=== PATIENT | female | born 1955 | race Caucasian/White ===

== ENCOUNTER 2019-10-11 12:29 | Inpatient (IN) | payer OTHER ==
[2019-10-11 13:10] VITALS: BMI 31.4
--- NOTE | 2019-10-11 16:50 | HP ---
CIWA Score Nausea/Vomitin Muscle Tremors: 2 Anxiety: 3 Agitation: 2 Paroxysmal Sweats: 3 Orientation: 0-Oriented Tacttile Disturbances: 1-Very Mild Itch/Numbness Auditory Disturbances: 0-None Visual Disturbances: 0-None Headache: 2-Mild CIWA-Ar Total Score: 15 - Admission Criteria OASAS Guidelines: Admission for Medically Managed Detox: Requires at least one of the followin. CIWA greater than 12 2. Seizures within the past 24 hours 3. Delirium tremens within the past 24 hours 4. Hallucinations within the past 24 hours 5. Acute intervention needed for co occurring medical disorder 6. Acute intervention needed for co occurring psychiatric disorder 7. Severe withdrawal that cannot be handled at a lower level of care (continued vomiting, continued diarrhea, abnormal vital signs) requiring intravenous medication and/or fluids 8. Admitting History and Physical - Admission Chief Complaint: "I'm here for alcohol detox". History of Present Illness: A 64year old female with history of HTN, hypothyroidism, dyslipidemia, depression, and alcohol use disorder who presents here today requesting for alcohol detox. Pt states she goes to [facility] outpatient CD program daily and gets a shot monthly but unable to recall the name of the shot she gets. Pt reports that she has been sober but lost her best friend recently and started drinking again. . Pt states, she uses Alcohol daily and last use today. Pt denies any depression or suicidal ideation at the moment. History Source: Patient Limitations to Obtaining History: No Limitations - Past Medical History Cardiovascular: Yes: HTN, Hyperlipdemia Endocrine: Yes: Hypothyroidism (on medication.) - Smoking History Smoking history: Unknown if ever smoked Have you smoked in the past 12 months: No - Alcohol/Substance Use Hx Alcohol Use: Yes History of Substance Use: reports: None - Social History Usual Living Arrangement: Yes: Alone, Other (senior care) Do you think of yourself as: Straight/Heterosexual ADL: Independent History of Recent Travel: No Admission [facility] [place] Allergies/Adverse Reactions: Allergies Allergy/AdvReac Type Severity Reaction Status Date / Time No Known Allergies Allergy Verified 10/11/19 13:10 Exam Limitations: No Limitations - Ebola screening Have you traveled outside of the country in the last 21 days: No Have you had contact with anyone from an Ebola affected area: No Have you been sick,other than usual withdrawal symptoms: No Do you have a fever: No - Review of Systems Constitutional: Chills, Loss of Appetite, Night Sweats EENT: reports: Blurred Vision, Other (Right eye sx Sep, 2019.) Respiratory: reports: No Symptoms reported Cardiac: reports: No Symptoms Reported GI: reports: Nausea, Poor Appetite : reports: No Symptoms Reported Musculoskeletal: reports: No Symptoms Reported Integumentary: reports: No Symptoms Reported Neuro: reports: Headache, Numbness, Tremors Endocrine: reports: No Symptoms Reported Hematology: reports: No Symptoms Reported Psychiatric: reports: Judgement Intact, Mood/Affect Appropiate, Anxious Other Systems: Reviewed and Negative Patient History - Patient Medical History Hx Anemia: No Hx Asthma: No Hx Chronic Obstructive Pulmonary Disease (COPD): No Hx Cancer: No Hx Cardiac Disorders: No Hx Congestive Heart Failure: No Hx Hypertension: Yes Hx Hypercholesterolemia: Yes Hx Pacemaker: No HX Cerebrovascular Accident: No Hx Seizures: No Hx Dementia: No Hx Diabetes: No Hx Gastrointestinal Disorders: No Hx Liver Disease: No Hx Genitourinary Disorders: No Hx Sexually Transmitted Disorders: No Hx Renal Disease (ESRD): No Hx Thyroid Disease: No Hx Human Immunodeficiency Virus (HIV): No Hx Hepatitis C: No Hx Depression: No Hx Suicide Attempt: No Hx Bipolar Disorder: No Hx Schizophrenia: No - Patient Surgical History Past Surgical History: No - PPD History Previous Implant?: Yes Documented Results: Positive w/o proof Implanted On Prior [facility] Admission?: No PPD to be Administered?: No - Smoking Cessation Smoking history: Never smoked Have you smoked in the past 12 months: No Hx Chewing Tobacco Use: No Initiated information on smoking cessation: No - Substance & Tx. History Hx Substance Use Treatment: Yes (attends [facility] outpatient program daily.) - Substances abused Alcohol Substance route: Oral Frequency: Daily Amount used: barcardi - 2pts Age of first use: 55 Date of last use: 10/11/19 Admission Physical Exam [facility] - Vital Signs Vital Signs: Vital Signs - 24 hr 10/11/19 10/11/19 13:02 16:25 Temperature 96.1 F L 96.1 F L Pulse Rate 90 90 Respiratory 18 18 Rate Blood Pressure 172/119 H 172/119 H - Physical General Appearance: Yes: No Apparent Distress, Tremorous, Irritable, Sweating, Anxious HEENTM: Yes: EOMI, Hearing grossly Normal, Normocephalic, Normal Voice, OCHOA, Pharynx Normal, Tm's normal Respiratory: Yes: Chest Non-Tender, Lungs Clear, Normal Breath Sounds, No Respiratory Distress Neck: Yes: No masses,lesions,Nodules, Supple, Trachea in good position Breast: Yes: Breast Exam Deferred Cardiology: Yes: Regular Rhythm, Regular Rate, S1, S2 Abdominal: Yes: Normal Bowel Sounds, Non Tender, Soft Genitourinary: Yes: Within Normal Limits Back: Yes: Normal Inspection Musculoskeletal: Yes: full range of Motion, Gait Steady Extremities: Yes: Normal Capillary Refill, Normal Range of Motion, Non-Tender, Tremors Neurological: Yes: Fully Oriented, Alert, Motor Strength 5/5, Normal Mood/Affect , Normal Response Integumentary: Yes: Dry, Warm Lymphatic: Yes: Within Normal Limits - Diagnostic (1) Alcohol dependence with withdrawal, uncomplicated Current Visit: Yes Status: Acute (2) HTN (hypertension) Current Visit: Yes Status: Chronic (3) Dyslipidemia Current Visit: Yes Status: Chronic (4) Hypothyroidism Current Visit: Yes Status: Acute Cleared for Admission [facility] - Detox or Rehab [facility] Level of Care: Medically Managed Detox Regimen/Protocol: Ativan, Librium Claeared for Rehab Admission: No Breathalyzer - Breathalyzer Breathalyzer: 0.196 Urine Drug Screen - Test Device Lot number: [id number] Expiration date: 04/20/21 - Control Is test valid?: Yes - Results Drug screen NEGATIVE: Yes Inpatient Rehab Admission - Rehab Decision to Admit Inpatient rehab admission?: No
[2019-10-11] MEDS ORDERED: hydrOXYzine PAMOATE 25 MG CAPSULE (FP) PO PRN (17:12)
[2019-10-11] MEDS ORDERED: ONDANSETRON *ODT* 4 MG TABLET SL PRN (17:12)
[2019-10-11] MEDS ORDERED: ACETAMINOPHEN 325 MG TABLET (FP) PO PRN ×2 (17:12)
[2019-10-11] MEDS ORDERED: MAGNESIUM CITRATE 300 ML BOTTLE PO PRN (17:12)
[2019-10-11] MEDS ORDERED: BISMUTH SUBSALICYLATE 524 MG/30 ML UD PO PRN (17:12)
[2019-10-11] MEDS ORDERED: MAGNESIUM HYDROX 2400MG/30ML ORAL SUSPENSION 30 ML CUP PO PRN (17:12)
[2019-10-11] MEDS ORDERED: IBUPROFEN 400 MG TABLET (FP) PO PRN (17:12)
[2019-10-11] MEDS ORDERED: MENTHOL/PHENOL 1 EACH UD MM PRN (17:12)
[2019-10-11] MEDS ORDERED: MELATONIN 5 MG TABLETS PO PRN (17:12)
[2019-10-11] MEDS ORDERED: LORazepam 2 MG TABLET PO ONE (17:13)
[2019-10-11] MEDS ORDERED: LORazepam 1 MG TABLET PO PRN (17:13)
[2019-10-11] MEDS ORDERED: cloNIDine HCL 0.1 MG TABLET PO ONE (17:22)
[2019-10-11] MEDS ORDERED: LORazepam 2 MG TABLET PO SCH (18:30)
[2019-10-11] MEDS: ATORVASTATIN CA 20 MG TABLET (FP) PO SCH (22:25)
[2019-10-11] MEDS: LORazepam 1 MG TABLET PO SCH (22:25)
[2019-10-11] MEDS: THIAMINE HCL 100 MG TABLET (FP) PO SCH (22:25)
[2019-10-12] MEDS: LORazepam 1 MG TABLET PO SCH ×4 (06:10→22:00)
[2019-10-12] MEDS: LEVOTHYROXINE NA 25 MCG TABLET (FP) PO SCH (06:10)
[2019-10-12] MEDS: PRENATAL VITAMINS W/ FOLIC ACID TABLET (FP) PO SCH (10:24)
[2019-10-12] MEDS: PANTOPRAZOLE 40 MG TABLET PO SCH (10:24)
[2019-10-12] MEDS: ENALAPRIL MALEATE 10 MG TABLET (FP) PO SCH (10:24)
[2019-10-12 12:15] LABS: HEMATOCRIT 37.2 % (32.4-45.2); HEMOGLOBIN 12.2 GM/dL (10.7-15.3); MEAN CELL VOLUME 84.9 fl (80-96); MEAN PLT VOLUME 8.3 fl (7.5-11.1); PLATELET COUNT 177 K/MM3 (134-434); RBC 4.37 M/mm3 (3.60-5.2); RDW 15.1 % (11.6-15.6); WHITE BLOOD COUNT 4.3 K/mm3 (4.0-10.0)
--- NOTE | 2019-10-12 12:16 | PN ---
S CIWA - CIWA Score Nausea/Vomitin Muscle Tremors: 2 Anxiety: 1-Mildly Anxious Agitation: 1-Slight > Activity Paroxysmal Sweats: 3 Orientation: 0-Oriented Tacttile Disturbances: 1-Very Mild Itch/Numbness Auditory Disturbances: 0-None Visual Disturbances: 0-None Headache: 0-None Present CIWA-Ar Total Score: 11 S Progress Note (SOAP) Subjective: interrupted sleep, sweats, shakes Objective: 10/12/19 12:14 Vital Signs Temperature 98.6 F 10/12/19 10:00 Pulse Rate 83 10/12/19 10:00 Respiratory Rate 16 10/12/19 10:00 Blood Pressure 139/77 10/12/19 10:00 O2 Sat by Pulse Oximetry (%) pending labs 10/12/19 12:14 pt aox3 in nad ambulating well Assessment: 10/12/19 12:14 withdrawal sx's Plan: cont. detox incerease fluids prn librim if neeeded
[2019-10-12 12:56] LABS: ALBUMIN 3.2 g/dl (3.4-5.0); BILIRUBIN,TOTAL 0.5 mg/dL (0.2-1); BLOOD UREA NITROGEN 6.7 mg/dL (7-18); CALCIUM 8.5 mg/dL (8.5-10.1); CREATININE 0.5 mg/dL (0.55-1.3); POTASSIUM 3.6 mmol/L (3.5-5.1); TOT PROT 6.4 g/dl (6.4-8.2)
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
[2019-10-12] MEDS: METHOCARBAMOL 500 MG TABLET PO PRN (17:14)
[2019-10-12] MEDS: THIAMINE HCL 100 MG TABLET (FP) PO SCH (21:59)
[2019-10-12] MEDS: ATORVASTATIN CA 20 MG TABLET (FP) PO SCH (21:59)
[2019-10-12] MEDS: MELATONIN 5 MG TABLETS PO PRN (22:00)
[2019-10-13] MEDS: MAG HYDROX/AL HYDROX/SIMETH 30 ML UNIT-DOSE CUP PO PRN ×2 (06:27→17:17)
[2019-10-13] MEDS: LORazepam 1 MG TABLET PO SCH ×4 (06:29→22:07)
[2019-10-13] MEDS: LEVOTHYROXINE NA 25 MCG TABLET (FP) PO SCH (07:54)
[2019-10-13] MEDS: ENALAPRIL MALEATE 10 MG TABLET (FP) PO SCH (10:36)
[2019-10-13] MEDS: PRENATAL VITAMINS W/ FOLIC ACID TABLET (FP) PO SCH (10:36)
[2019-10-13] MEDS: PANTOPRAZOLE 40 MG TABLET PO SCH (10:36)
--- NOTE | 2019-10-13 12:47 | PN ---
S CIWA - CIWA Score Nausea/Vomitin-No Nausea/No Vomiting Muscle Tremors: 3 Anxiety: 2 Agitation: 3 Paroxysmal Sweats: 2 Orientation: 0-Oriented Tacttile Disturbances: 0-None Auditory Disturbances: 0-None Visual Disturbances: 0-None Headache: 0-None Present CIWA-Ar Total Score: 10 S Progress Note (SOAP) Subjective: sweats shakes body aches knee pain Objective: 10/13/19 12:46 Vital Signs Temperature 98.1 F 10/13/19 12:23 Pulse Rate 83 10/13/19 12:23 Respiratory Rate 18 10/13/19 12:23 Blood Pressure 133/80 10/13/19 12:23 O2 Sat by Pulse Oximetry (%) Laboratory Tests 10/12/19 10/12/19 10/12/19 08:00 08:00 08:00 WBC 4.3 RBC 4.37 Hgb 12.2 Hct 37.2 MCV 84.9 MCH 28.0 MCHC 33.0 RDW 15.1 Plt Count 177 MPV 8.3 Sodium 141 Potassium 3.6 Chloride 102 Carbon Dioxide 32 Anion Gap 7 L BUN 6.7 L Creatinine 0.5 L Est GFR (CKD-EPI)AfAm 118.54 Est GFR (CKD-EPI)NonAf 102.28 Random Glucose 99 Calcium 8.5 Total Bilirubin 0.5 AST 18 ALT 19 Alkaline Phosphatase 129 H Total Protein 6.4 Albumin 3.2 L RPR Titer Nonreactive labs noted aaox3 ambulating no acute distress Assessment: 10/13/19 12:47 withdrawals Plan: continue detox increase fluids motrin/tylenol prn analgesic balm
[2019-10-13] MEDS: METHYL SALICYLATE/MENTHOL OINT 30 GM TUBE TP SCH ×2 (15:21→23:37)
[2019-10-13] MEDS: MELATONIN 5 MG TABLETS PO PRN (22:07)
[2019-10-13] MEDS: THIAMINE HCL 100 MG TABLET (FP) PO SCH (22:07)
[2019-10-13] MEDS: ATORVASTATIN CA 20 MG TABLET (FP) PO SCH (22:07)
[2019-10-13] MEDS: METHOCARBAMOL 500 MG TABLET PO PRN (22:07)
[2019-10-14] MEDS ORDERED: LORazepam 0.5 MG TABLET PO PRN
[2019-10-14] MEDS ORDERED: LORazepam 0.5 MG TABLET PO SCH (05:00)
[2019-10-14] MEDS: MAG HYDROX/AL HYDROX/SIMETH 30 ML UNIT-DOSE CUP PO PRN (05:49)
[2019-10-14] MEDS: LEVOTHYROXINE NA 25 MCG TABLET (FP) PO SCH (06:53)
[2019-10-14 06:59] VITALS: BP 135/97; PULSE 76; TEMP 98.2
--- NOTE | 2019-10-14 09:34 | DS ---
[facility] Detox Discharge Summary Admission Date: 10/11/19 Discharge Date: 10/14/19 - History Present History: Alcohol Dependence - Physical Exam Results Vital Signs: Vital Signs Temperature 98.2 F 10/14/19 06:58 Pulse Rate 76 10/14/19 06:58 Respiratory Rate 16 10/14/19 06:58 Blood Pressure 135/97 10/14/19 06:58 O2 Sat by Pulse Oximetry (%) Pertinent Admission Physical Exam Findings: Vital Signs Temperature 98.2 F 10/14/19 06:58 Pulse Rate 76 10/14/19 06:58 Respiratory Rate 16 10/14/19 06:58 Blood Pressure 135/97 10/14/19 06:58 O2 Sat by Pulse Oximetry (%) Laboratory Tests 10/12/19 10/12/19 10/12/19 08:00 08:00 08:00 WBC 4.3 RBC 4.37 Hgb 12.2 Hct 37.2 MCV 84.9 MCH 28.0 MCHC 33.0 RDW 15.1 Plt Count 177 MPV 8.3 Sodium 141 Potassium 3.6 Chloride 102 Carbon Dioxide 32 Anion Gap 7 L BUN 6.7 L Creatinine 0.5 L Est GFR (CKD-EPI)AfAm 118.54 Est GFR (CKD-EPI)NonAf 102.28 Random Glucose 99 Calcium 8.5 Total Bilirubin 0.5 AST 18 ALT 19 Alkaline Phosphatase 129 H Total Protein 6.4 Albumin 3.2 L RPR Titer Nonreactive aaox3 ambulating no acute distress - Treatment Hospital Course: Detox Protocol Followed, Detoxed Safely, Responded well, Discharged Condition Good, Rehab Referral Accepted Patient has Accepted a Rehab Referral to: pt declined rehab; referral provided - Medication Discharge Medications: Ambulatory Orders Acetaminophen 500 mg PO Q6H PRN 10/11/19 Cholecalciferol (Vitamin D3) [Vitamin D3] 5,000 unit PO WEEKLY 10/11/19 Enalapril Maleate [Vasotec -] 10 mg PO DAILY 10/11/19 Hydroxyzine HCl 50 mg PO HS 10/11/19 Levothyroxine [Synthroid -] 50 mcg PO DAILY 10/11/19 Naproxen [Naprosyn -] 250 mg PO BID 10/11/19 Pantoprazole Sodium 40 mg PO DAILY 10/11/19 Simvastatin [Zocor -] 40 mg PO HS 10/11/19 Thiamine HCl [B-1] 100 mg PO DAILY 10/11/19 - Diagnosis (1) Alcohol dependence with withdrawal, uncomplicated Current Visit: Yes Status: Chronic (2) Alcohol-induced sleep disorder Current Visit: Yes Status: Acute (3) Hypothyroidism Current Visit: Yes Status: Acute (4) Dyslipidemia Current Visit: Yes Status: Chronic (5) GERD (gastroesophageal reflux disease) Current Visit: Yes Status: Chronic (6) HTN (hypertension) Current Visit: Yes Status: Chronic - AMA Did Patient Leave Against Medical Advice: No
[2019-10-15] MEDS ORDERED: LORazepam 0.5 MG TABLET PO ONE (05:00)
== END 2019-10-14 09:14 | disposition home or self-care (01) | DRG 775 ==
LOC: YASAS 12:29 → Y6N 17:54
PROVIDERS: ADMIT Allergy & Immunology; ATTEND Allergy & Immunology
PROC: HZ2ZZZZ Detoxification Services for Substance Abuse Treatment (ICD-10-PCS; principal; 2019-10-11)
DX: F10.230 Alcohol dependence with withdrawal, uncomplicated (principal); F10.282 Alcohol dependence with alcohol-induced sleep disorder; I10 Essential (primary) hypertension; E03.9 Hypothyroidism, unspecified; E78.5 Hyperlipidemia, unspecified; K21.9 Gastro-esophageal reflux disease without esophagitis; R76.11 Nonspecific reaction to tuberculin skin test without active tuberculosis
CPT/HCPCS: 36415; 80053; 85027; 86593; J0735